=== PATIENT | female | born 1960 | race American Indian/Alaskan Native ===

== ENCOUNTER 2017-06-07 08:24 | Outpatient (CLI) | payer MEDICARE ==
[2017-06-07] MEDS ORDERED: XYLOCAINE TOPICAL 4% TP ONE (09:18)
== END 2017-06-07 08:25 | disposition home or self-care (01) ==
LOC: WOUND 08:24
PROVIDERS: ATTEND Podiatrist
DX: E11.622 Type 2 diabetes mellitus with other skin ulcer (principal); L97.812 Non-pressure chronic ulcer of other part of right lower leg with fat layer exposed; L97.822 Non-pressure chronic ulcer of other part of left lower leg with fat layer exposed; I87.2 Venous insufficiency (chronic) (peripheral); I10 Essential (primary) hypertension; F17.200 Nicotine dependence, unspecified, uncomplicated
CPT/HCPCS: 11042; 82962; 87116; 88304; G0463

== ENCOUNTER 2017-06-07 10:33 | Inpatient (IN) | payer MEDICARE ==
[2017-06-07 11:31] LABS: Basophils # (Auto) 0.1 K/mm3 (0.0-0.1); Basophils % (Auto) 1.1 % (0.0-1.8); Eosinophils # (Auto) 0.5 K/mm3 (0.0-0.4); Eosinophils % (Auto) 9.3 % (0.0-4.3); Hematocrit 47.3 % (30.3-42.9); Lymphocytes # (Auto) 1.9 K/mm3 (1.2-5.4); Lymphocytes % (Auto) 34.4 % (13.4-35.0); Mean Corpuscular HGB Conc 32 % (30-34); Mean Corpuscular Hemoglobin 27 pg (28-32); Mean Corpuscular Volume 84 fl (79-97); Monocytes # (Auto) 0.4 K/mm3 (0.0-0.8); Monocytes % (Auto) 7.4 % (0.0-7.3); Platelet Count 199 K/mm3 (140-440); Red Blood Count 5.61 M/mm3 (3.65-5.03); Red Cell Distribution Width 14.7 % (13.2-15.2)
[2017-06-07 12:18] LABS: BUN/Creatinine Ratio 14; Blood Urea Nitrogen 10 mg/dL (7-17); Calcium 9.6 mg/dL (8.4-10.2); Hemolysis Index 8
[2017-06-07] MEDS ORDERED: HumuLIN R IV ONE (12:58)
[2017-06-07] MEDS ORDERED: NACL 0.9% 1000 ML 1,000 ML IV ONE (12:58)
--- NOTE | 2017-06-07 13:35 | Emergency Department Report ---
HPI - General Chief Complaint: Hyperglycemia Time Seen by Provider: 06/07/17 12:44 - HPI HPI: 56-year-old female presents to the emergency department with complaint of elevated blood pressure, elevated blood sugar and sores to her legs. She was sent in from the wound center where she visited today for her second time ever. She says that these lower extremity wounds have been there over the past 2 years but worsened recently. She has a past medical history of arthritis, diabetes and hypertension. She is on both pills and insulin for her diabetes and says she has been compliant. She denies any fever, chest pain, shortness of breath, nausea, vomiting. Other than her normal home medications, she has not taken anything for her symptoms prior to presentation. No recent travel or sick contacts at home. ED Past Medical Hx - Past Medical History Hx Hypertension: Yes Hx Diabetes: Yes Hx Arthritis: Yes Additional medical history: hyperlipidemia - Surgical History Additional Surgical History: L hand surgery - Social History Smoking Status: Current Every Day Smoker Substance Use Type: Alcohol - Medications Home Medications: Home Medications Medication Instructions Recorded Confirmed Last Taken Type Atorvastatin (Nf) [Lipitor (Nf)] 20 mg PO QDAY 04/24/14 05/08/14 05/08/14 History Carvedilol [Coreg] 25 mg PO BID 04/24/14 05/08/14 05/08/14 History HYDROcodone/APAP 5-325 [Garibaldi 1 each PO Q6HR PRN #12 tablet 04/24/14 05/08/14 Rx 5-325 mg TAB] Insulin Aspart [NovoLOG Flexpen] 10 unit SQ BID 04/24/14 05/08/14 05/08/14 History Insulin Detemir [Levemir Flextouch] 60 units SQ HS 04/24/14 05/08/14 05/08/14 History Lisinopril/Hydrochlorothiazide 1 tab PO QDAY 04/24/14 05/08/14 05/08/14 History [Zestoretic 20-12.5 mg] Mometasone/Formoterol [Dulera 100 1 puff IH BID 04/24/14 05/08/14 05/08/14 History Mcg/5 Mcg Inhaler] cloNIDine [Catapres] 0.2 mg PO QHS #30 tablet 04/24/14 05/08/14 05/08/14 Rx Ibuprofen [Motrin 400 MG tab] 400 mg PO Q8H #20 tablet 05/08/14 Unknown Rx Latanoprost [Xalatan 0.005% eye 1 drop OU QPM 05/08/14 05/08/14 05/08/14 History drops] metFORMIN [Glucophage] 500 mg PO BID #60 tablet 05/08/14 Unknown Rx Acetaminophen/Codeine [Tylenol #3] 1 tab PO Q6H PRN #20 tab 06/03/15 Unknown Rx Clindamycin [Clindamycin CAP] 300 mg PO Q6H #40 capsule 06/03/15 Unknown Rx Ibuprofen [Motrin] 600 mg PO Q8H PRN #40 tablet 06/03/15 Unknown Rx ED Review of Systems ROS: Stated complaint: HYPERTENSIVE/ BILATERAL LEG SORES Other details as noted in HPI Comment: All other systems reviewed and negative Constitutional: denies: chills, fever Eyes: denies: eye pain, eye discharge, vision change ENT: denies: ear pain, throat pain Respiratory: denies: cough, shortness of breath, wheezing Cardiovascular: denies: chest pain, palpitations Gastrointestinal: denies: abdominal pain, nausea, diarrhea Genitourinary: denies: urgency, dysuria, discharge Musculoskeletal: denies: back pain, joint swelling, arthralgia Skin: lesions, change in color Neurological: denies: headache, weakness, paresthesias Physical Exam - Physical Exam Vital Signs: Vital Signs 06/07/17 10:51 Temperature 97.9 F Pulse Rate 79 Respiratory 16 Rate Blood Pressure 132/96 O2 Sat by Pulse 95 Oximetry Physical Exam: GENERAL: The patient is well-developed well-nourished. HENT: Normocephalic. Atraumatic. Patient has moist mucous membranes. EYES: Extraocular motions are intact. Pupils equal reactive to light bilaterally. NECK: Supple. Trachea is midline. CHEST/LUNGS: Clear to auscultation. There is no respiratory distress noted. HEART/CARDIOVASCULAR: Regular. There is no tachycardia. There is no murmur. ABDOMEN: Abdomen is soft, nontender. Patient has normal bowel sounds. Obese habitus. SKIN: There are multiple bilateral lower extremity sores and ulcerations between the knees and ankles over the tib-fib region. The area to the right lower extremity also has surrounding erythema and some warmth concerning for a cellulitis. NEURO: The patient is awake, alert, and oriented. The patient is cooperative. The patient has no focal neurologic deficits. The patient has normal speech. MUSCULOSKELETAL: There is no tenderness or deformity. There is no evidence of acute injury. ED Course Vital Signs 06/07/17 10:51 Temperature 97.9 F Pulse Rate 79 Respiratory 16 Rate Blood Pressure 132/96 O2 Sat by Pulse 95 Oximetry ED Medical Decision Making - Lab Data Result diagrams: 06/07/17 11:00 06/07/17 11:00 - Medical Decision Making The patient presents with hyperglycemia that is uncontrolled diabetes, lower extremity chronic wounds and ulcers that appear to have developed into a cellulitis. She had a complaint of elevated blood pressure but it has been reasonable since she has been in the emergency department. She has a blood sugar of 500 with a mild elevation in her anion gap no venous acidosis. She does not appear to be in diabetic ketoacidosis but certainly has uncontrolled diabetes. She was given IV fluid and IV insulin to start. However with the lower external cellulitis, the complaint that there was some purulent discharge seen in the Wound Care clinic, with the elevated uncontrolled diabetes, the patient will be admitted to the hospital for further evaluation, IV antibiotics and she has been accepted for admission by the hospitalist, Dr Carpenter. - Differential Diagnosis HHNK, DKA, cellulitis, venous stasis Critical Care Time: No Critical care attestation.: If time is entered above; I have spent that time in minutes in the direct care of this critically ill patient, excluding procedure time. ED Disposition Clinical Impression: Hyperglycemia Lower extremity cellulitis Qualifiers: Laterality: right Qualified Code(s): L03.115 - Cellulitis of right lower limb Uncontrolled diabetes mellitus Qualifiers: Diabetes mellitus type: type 1 Diabetes mellitus complication status: with hyperglycemia Qualified Code(s): E10.65 - Type 1 diabetes mellitus with hyperglycemia Disposition: OP ADMIT IP TO THIS HOSP Is pt being admited?: Yes Condition: Stable Referrals: PRIMARY CARE, [Primary Care Provider] - 3-5 Days Time of Disposition: 15:32
--- NOTE | 2017-06-07 14:58 | History and Physical Report ---
History of Present Illness Chief complaint: My leg is infected History of present illness: 56 YO Female with HTN, DM, OA, HLD, Nicotine Dependence, presents to ED for evaluation. Pt states that she has experienced redness and pain in her legs over the past 1 week with worsening redness over the past 2 days. Pt seen and evaluated in the wound care clinic and found to have Bilateral lower extremity cellulitis. Pt sent to ED for evaluation. Pt denies fever, Chills, CP, Palpitations, NVD, Productive cough, recent ill contacts, shortness of breath, nausea, vomiting, diarrhea, prolonged travel/immobility, individual/family history of DVT/PE. Pt admitted to medical floor. Past History Past Medical History: arthritis, diabetes, hypertension Past Surgical History: Other (Left Hand) Social history: smoking Family history: diabetes, hypertension Medications and Allergies Allergies Allergy/AdvReac Type Severity Reaction Status Date / Time Sulfa (Sulfonamide Allergy Hives Verified 04/24/14 02:09 Antibiotics) Home Medications Medication Instructions Recorded Confirmed Last Taken Type Carvedilol [Coreg] 25 mg PO HS 04/24/14 06/07/17 06/06/17 History Insulin Detemir [Levemir Flextouch] 22 units SUB-Q BID 04/24/14 06/07/17 History Aspirin/Acetaminophen/Caffeine 1 each PO QDAY PRN 06/07/17 06/07/17 06/06/17 History [Goodbridgette's Ex-Str Powder Packet] Atorvastatin Calcium [Lipitor] 20 mg PO HS 06/07/17 06/07/17 06/06/17 History Lisinopril/Hydrochlorothiazide 1 tab PO QDAY 06/07/17 06/07/17 06/06/17 History [Zestoretic 20-25 mg] Active Meds: Active Medications Vancomycin HCl (Vancomycin/0.45 Ns 1 Gm/250 Ml) 1 gm in 250 mls @ 167.007 mls/ hr IV ONCE ONE Stop: 06/07/17 16:59 Review of Systems Constitutional: no weight loss, no weight gain, no fever, no chills Ears, nose, mouth and throat: no ear pain, no ear discharge, no tinnitis, no decreased hearing, no nose pain, no nasal congestion, no nasal discharge Breasts: no change in shape, no swelling, no mass Cardiovascular: no chest pain, no orthopnea, no palpitations, no rapid/ irregular heart beat, no edema, no syncope Respiratory: no cough, no cough with sputum, no excessive sputum, no hemoptysis , no shortness of breath Gastrointestinal: no nausea, no vomiting, no diarrhea, no constipation, no change in bowel habits Genitourinary Female: no pelvic pain, no flank pain, no menorrhagia Rectal: no pain, no incontinence, no bleeding Musculoskeletal: other (Leg redness, ), no neck pain, no shooting arm pain, no arm numbness/tingling, no morning stiffness, no muscle weakness, no muscle cramps Integumentary: redness, lesions Neurological: no head injury, no transient paralysis, no paralysis, no weakness , no parathesias, no numbness, no tingling, no seizures Psychiatric: no anxiety, no memory loss, no change in sleep habits, no sleep disturbances, no insomnia, no hypersomnia, no change in appetite Endocrine: no cold intolerance, no heat intolerance, no polyphagia, no excessive thirst, no polydipsia, no polyuria, no nocturia, no excessive sweating , no flushing Hematologic/Lymphatic: no easy bruising, no easy bleeding, no lymphadenopathy, no lymphedema Allergic/Immunologic: no urticaria, no allergic rhinitis, no wheezing, no persistent infections, no anaphylaxis, no angioedema Exam - Constitutional Vitals: Temp Pulse Resp BP Pulse Ox 97.9 F 79 16 132/96 95 06/07/17 10:51 06/07/17 10:51 06/07/17 10:51 06/07/17 10:51 06/07/17 10:51 General appearance: Present: mild distress - EENT Eyes: Present: PERRL ENT: hearing intact, clear oral mucosa - Respiratory Respiratory effort: normal - Cardiovascular Heart Sounds: Present: S1 & S2. Absent: rub, click - Extremities Extremity abnormal: edema, ulceration, erythema Results - Labs CBC & Chem 7: 06/07/17 11:00 06/07/17 11:00 Labs: Abnormal lab results 06/07/17 06/07/17 06/07/17 Range/Units 11:00 11:00 11:01 RBC 5.61 H (3.65-5.03) M/mm3 Hgb 15.0 H (10.1-14.3) gm/dl Hct 47.3 H (30.3-42.9) % MCH 27 L (28-32) pg [place] % (Auto) 7.4 H (0.0-7.3) % Eos % (Auto) 9.3 H (0.0-4.3) % Eos # 0.5 H (0.0-0.4) K/mm3 Glucose 506 H* (65-100) mg/dL POC Glucose 431 H (70-105) Assessment and Plan - Patient Problems (1) Lower extremity cellulitis Current Visit: Yes Status: Acute Qualifiers: Laterality: left Qualified Code(s): L03.116 - Cellulitis of left lower limb Plan to address problem: Left and right lower Extremity Cellulitis: IV antibiotics, wound care, wound culture, pain control. (2) Nicotine dependence Current Visit: Yes Status: Acute Qualifiers: Substance use status: in withdrawal Plan to address problem: Nicotine cessation counseling, supportive care. (3) Uncontrolled diabetes mellitus Current Visit: Yes Status: Acute Qualifiers: Diabetes mellitus type: type 1 Diabetes mellitus complication status: with hyperglycemia Qualified Code(s): E10.65 - Type 1 diabetes mellitus with hyperglycemia Plan to address problem: consistent carbohydrate diet, accu check, insulin (4) DVT prophylaxis Current Visit: Yes Status: Acute
[2017-06-07] MEDS ORDERED: VANCOMYCIN/NS 1 GM/250 ML 1 GM/250 ML BAG IV SCH (15:00)
[2017-06-07] MEDS ORDERED: VANCOMYCIN/0.45 NS 1 GM/250 ML 1 GM/250 ML BAG IV ONE (15:30)
[2017-06-07] MEDS ORDERED: PROVENTIL IH PRN (15:31)
[2017-06-07] MEDS ORDERED: TYLENOL PO PRN (15:31)
[2017-06-07] MEDS ORDERED: SODIUM CHLORIDE FLUSH SYRINGE 10 ML IV PRN (15:31)
[2017-06-07] MEDS ORDERED: ZOFRAN IV PRN (15:31)
[2017-06-07] MEDS ORDERED: D50W (25GM) Syringe IV PRN (15:33)
[2017-06-07 17:36] LABS: Bilirubin,Urine NEG (Negative); Blood,Urine NEG (Negative); Color,Urine Yellow (Yellow); Mucus,Urine FEW /HPF; Protein,Urine <15 mg/dL mg/dL (Negative); Urobilinogen,Urine < 2.0 mg/dL (<2.0)
[2017-06-07] MEDS: SODIUM CHLORIDE FLUSH SYRINGE 10 ML IV SCH (22:16)
[2017-06-07] MEDS: HumaLOG SUB-Q SCH ×2 (22:19→23:12)
[2017-06-08] MEDS: HumaLOG SUB-Q SCH ×3 (06:37→16:30)
[2017-06-08] MEDS: SODIUM CHLORIDE FLUSH SYRINGE 10 ML IV SCH (10:51)
--- NOTE | 2017-06-08 12:32 | Progress Note ---
Assessment and Plan / B/L Lower extremity cellulitis Left and right lower Extremity Cellulitis: IV antibiotics, wound care, wound culture, pain control. follow blood cx / Nicotine dependence Nicotine cessation counseling done, supportive care. / Uncontrolled diabetes mellitus consistent carbohydrate diet, accu check, insulin check a1c /HTN, stable with current meds / DVT prophylaxis lovenox Brief History: 56-year-old female with past medical history of arthritis, diabetes and hypertension presented to the emergency department with complaint of elevated blood sugar and sores to her legs. She was sent in from the wound center where she visited today for her second time ever. She says that these lower extremity wounds have been there over the past 2 years but worsened recently. Physical Exam: GENERAL: The patient is well-developed well-nourished. HENT: Normocephalic. Atraumatic. Patient has moist mucous membranes. EYES: Extraocular motions are intact. Pupils equal reactive to light bilaterally. NECK: Supple. Trachea is midline. CHEST/LUNGS: Clear to auscultation. There is no respiratory distress noted. HEART/CARDIOVASCULAR: Regular. There is no tachycardia. There is no murmur. ABDOMEN: Abdomen is soft, nontender. Patient has normal bowel sounds. Obese habitus. SKIN: There are multiple bilateral lower extremity sores and ulcerations between the knees and ankles over the tib-fib region. The area to the right lower extremity also has surrounding erythema and some warmth NEURO: The patient is awake, alert, and oriented. The patient is cooperative. The patient has no focal neurologic deficits. The patient has normal speech. MUSCULOSKELETAL: There is no tenderness or deformity. There is no evidence of acute injury. Subjective Date of service: 06/08/17 Interval history: Pt seen and examined states her soreness to LE improved BG remained elevated Objective - Constitutional Vitals: Vital Signs - 12hr 06/08/17 06/08/17 06/08/17 00:56 04:45 07:54 Temperature 98.4 F 98.3 F Pulse Rate 70 75 Respiratory 19 20 Rate Blood Pressure 119/81 133/96 O2 Sat by Pulse 95 96 94 Oximetry 06/08/17 11:49 Temperature 98.7 F Pulse Rate 73 Respiratory 20 Rate Blood Pressure 128/98 O2 Sat by Pulse 94 Oximetry - Labs CBC & Chem 7: 06/07/17 11:00 06/07/17 11:00 Labs: Abnormal lab results 06/07/17 06/07/17 06/08/17 Range/Units 11:01 21:19 06:21 POC Glucose 431 H 373 H 278 H (70-105) 06/08/17 Range/Units 11:43 POC Glucose 279 H (70-105)
[2017-06-08] MEDS ORDERED: VANCOMYCIN PHARMACY TO DOSE IV SCH (14:00)
[2017-06-08] MEDS: VANCOMYCIN/NS 1 GM/250 ML 1 GM/250 ML BAG IV SCH (15:00)
[2017-06-08] MEDS: DIFLUCAN PO SCH (17:30)
[2017-06-09] MEDS: VANCOMYCIN/NS 1 GM/250 ML 1 GM/250 ML BAG IV SCH ×2 (00:53→09:30)
[2017-06-09] MEDS: SODIUM CHLORIDE FLUSH SYRINGE 10 ML IV SCH ×3 (00:55→22:05)
[2017-06-09] MEDS: HumaLOG SUB-Q SCH ×5 (00:57→22:27)
[2017-06-09] MEDS: MONISTAT VG SCH ×2 (01:00→23:01)
[2017-06-09] MEDS: DIFLUCAN PO SCH (09:37)
[2017-06-09] MEDS ORDERED: NON-FORMULARY (Insulin Detemir [Levemir Flextouch] 20 UNITS) SUB-Q SCH (10:00)
--- NOTE | 2017-06-09 13:09 | Progress Note ---
Assessment and Plan / B/L Lower extremity cellulitis Left and right lower Extremity Cellulitis: wound care, pain control. negative blood cx, change abx to levaquin po / Nicotine dependence Nicotine cessation counseling done, supportive care. / Uncontrolled diabetes mellitus consistent carbohydrate diet, accu check, insulin a1c >20 add premeal insulin, along with long acting /HTN, change home meds dosage - will place on coreg 6.25 BID and lisinopril 10mg daily / DVT prophylaxis lovenox Brief History: 56-year-old female with past medical history of arthritis, diabetes and hypertension presented to the emergency department with complaint of elevated blood sugar and sores to her legs. She was sent in from the wound center where she visited today for her second time ever. She says that these lower extremity wounds have been there over the past 2 years but worsened recently. Physical Exam: GENERAL: The patient is well-developed well-nourished. HENT: Normocephalic. Atraumatic. Patient has moist mucous membranes. EYES: Extraocular motions are intact. Pupils equal reactive to light bilaterally. NECK: Supple. Trachea is midline. CHEST/LUNGS: Clear to auscultation. There is no respiratory distress noted. HEART/CARDIOVASCULAR: Regular. There is no tachycardia. There is no murmur. ABDOMEN: Abdomen is soft, nontender. Patient has normal bowel sounds. Obese habitus. SKIN: There are multiple bilateral lower extremity sores and ulcerations between the knees and ankles over the tib-fib region. The area to the right lower extremity also has surrounding erythema and some warmth NEURO: The patient is awake, alert, and oriented. The patient is cooperative. The patient has no focal neurologic deficits. The patient has normal speech. MUSCULOSKELETAL: There is no tenderness or deformity. There is no evidence of acute injury. Subjective Date of service: 06/09/17 Interval history: Pt seen and examined states her soreness to LE improved BG remained elevated Objective - Constitutional Vitals: Vital Signs - 12hr 06/09/17 06/09/17 04:25 07:21 Temperature 98.1 F 98.6 F Pulse Rate 66 71 Respiratory 18 20 Rate Blood Pressure 131/84 142/98 O2 Sat by Pulse 94 97 Oximetry - Labs CBC & Chem 7: 06/07/17 11:00 06/10/17 06:22 Labs: Abnormal lab results 06/08/17 06/08/17 06/09/17 Range/Units 16:09 22:03 06:10 POC Glucose 319 H 284 H 220 H (70-105) Hemoglobin A1c (4-6) % 06/09/17 06/09/17 Range/Units 10:26 11:08 POC Glucose 270 H (70-105) Hemoglobin A1c > 20.1 H (4-6) %
[2017-06-09] MEDS: CLEOCIN 600 MG/50 mL 600 MG/50 ML BAG IV SCH ×2 (14:18→21:20)
[2017-06-09] MEDS: COREG PO SCH ×2 (15:28→21:20)
[2017-06-09] MEDS ORDERED: ZESTRIL PO SCH (16:00)
[2017-06-09] MEDS: HumuLIN R SUB-Q SCH (17:23)
[2017-06-09] MEDS ORDERED: VANCOMYCIN 1,250 MG in NACL 0.9% 250ML 250 ML IV SCH (20:00)
[2017-06-09] MEDS ORDERED: VANCOMYCIN 1,500 MG in NACL 0.9% 500 ML 500 ML IV SCH (20:00)
[2017-06-09] MEDS ORDERED: LANTUS SUB-Q SCH (22:00)
[2017-06-10] MEDS: CLEOCIN 600 MG/50 mL 600 MG/50 ML BAG IV SCH ×3 (05:27→22:09)
[2017-06-10 07:09] LABS: BUN/Creatinine Ratio 18; Blood Urea Nitrogen 9 mg/dL (7-17); Calcium 8.4 mg/dL (8.4-10.2); Hemolysis Index 9
[2017-06-10] MEDS: HumuLIN R SUB-Q SCH ×3 (07:30→17:10)
[2017-06-10] MEDS: HumaLOG SUB-Q SCH ×4 (07:30→22:10)
[2017-06-10] MEDS ORDERED: LANTUS SUB-Q SCH (08:05)
[2017-06-10] MEDS: ZESTRIL PO SCH (10:05)
[2017-06-10] MEDS: COREG PO SCH ×2 (10:05→22:09)
[2017-06-10] MEDS: DIFLUCAN PO SCH (10:05)
[2017-06-10] MEDS: SODIUM CHLORIDE FLUSH SYRINGE 10 ML IV SCH ×2 (10:13→22:08)
[2017-06-10] MEDS: NORVASC PO SCH (13:10)
--- NOTE | 2017-06-10 14:23 | Progress Note ---
Assessment and Plan / B/L Lower extremity cellulitis Left and right lower Extremity Cellulitis: wound care, pain control. negative blood cx, change abx to clindamycin iv / Nicotine dependence Nicotine cessation counseling done, supportive care. / Uncontrolled diabetes mellitus consistent carbohydrate diet, accu check, insulin a1c >20 increase premeal insulin to 10 unit and long acting insulin to 28 unit BID /HTN, change home meds dosage - cont on coreg 6.25 BID and lisinopril 10mg daily - will also add norvasc 10mg daily /Vaginal candidiasis - cont miconazole PV and diflucan po / DVT prophylaxis lovenox Disposition: Likely tomorrow if BG improved and BP stable Brief History: 56-year-old female with past medical history of arthritis, diabetes and hypertension presented to the emergency department with complaint of elevated blood sugar and sores to her legs. She was sent in from the wound center where she visited today for her second time ever. She says that these lower extremity wounds have been there over the past 2 years but worsened recently. Physical Exam: GENERAL: The patient is well-developed well-nourished. HENT: Normocephalic. Atraumatic. Patient has moist mucous membranes. EYES: Extraocular motions are intact. Pupils equal reactive to light bilaterally. NECK: Supple. Trachea is midline. CHEST/LUNGS: Clear to auscultation. There is no respiratory distress noted. HEART/CARDIOVASCULAR: Regular. There is no tachycardia. There is no murmur. ABDOMEN: Abdomen is soft, nontender. Patient has normal bowel sounds. Obese habitus. SKIN: There are multiple bilateral lower extremity sores and ulcerations between the knees and ankles over the tib-fib region. The area to the right lower extremity also has surrounding erythema and some warmth NEURO: The patient is awake, alert, and oriented. The patient is cooperative. The patient has no focal neurologic deficits. The patient has normal speech. MUSCULOSKELETAL: There is no tenderness or deformity. There is no evidence of acute injury. Subjective Date of service: 06/10/17 Interval history: Pt seen and examined states her soreness to LE improved BG remained elevated Objective - Constitutional Vitals: Vital Signs - 12hr 06/10/17 06/10/17 06/10/17 05:10 07:46 10:00 Temperature 98.0 F 98.1 F Pulse Rate 61 63 Respiratory 20 18 Rate Blood Pressure 143/99 136/97 O2 Sat by Pulse 94 97 98 Oximetry 06/10/17 11:59 Temperature 98.0 F Pulse Rate Respiratory 18 Rate Blood Pressure 137/105 O2 Sat by Pulse Oximetry - Labs CBC & Chem 7: 06/07/17 11:00 06/10/17 06:22 Labs: Abnormal lab results 06/09/17 06/09/17 06/10/17 Range/Units 16:09 22:24 06:19 Creatinine (0.7-1.2) mg/dL Glucose (65-100) mg/dL POC Glucose 225 H 245 H 196 H (70-105) 06/10/17 06/10/17 Range/Units 06:22 11:28 Creatinine 0.5 L (0.7-1.2) mg/dL Glucose 189 H (65-100) mg/dL POC Glucose 269 H (70-105)
[2017-06-10] MEDS: LANTUS SUB-Q SCH (22:10)
[2017-06-10] MEDS: MONISTAT VG SCH (22:10)
[2017-06-11] MEDS: CLEOCIN 600 MG/50 mL 600 MG/50 ML BAG IV SCH ×3 (06:20→22:09)
[2017-06-11 07:06] LABS: Chol/HDL Ratio 5.07 %
[2017-06-11] MEDS: HumuLIN R SUB-Q SCH ×3 (07:30→16:30)
[2017-06-11] MEDS: HumaLOG SUB-Q SCH ×4 (08:33→22:10)
[2017-06-11] MEDS: DIFLUCAN PO SCH (09:38)
[2017-06-11] MEDS: ZESTRIL PO SCH (09:38)
[2017-06-11] MEDS: NORVASC PO SCH (09:39)
[2017-06-11] MEDS: COREG PO SCH ×2 (09:39→22:08)
[2017-06-11] MEDS: LANTUS SUB-Q SCH ×2 (09:39→22:10)
[2017-06-11] MEDS: SODIUM CHLORIDE FLUSH SYRINGE 10 ML IV SCH ×2 (09:41→22:11)
--- NOTE | 2017-06-11 18:51 | Progress Note ---
Assessment and Plan Assessment and plan: --Bilateral lower extremity cellulitis; Continue current antibiotics, elevate the limbs Follow cultures, wound care, wound care surgery evaluation Inpatient versus outpatient --Uncontrolled diabetes mellitus; HbA1c more than 20, Accu-Chek sliding scale coverage and ADA diet Long-acting insulin, diabetic education and nutrition consult Home health nurse for diabetic education and monitoring upon discharge --Hypertension; moderate control Continue current antihypertensives and when necessary medications --Vaginal candidiasis; continue local miconazole, oral Diflucan --DVT prophylaxis; Lovenox --Ongoing tobacco use; counseling done advised nicotine patch as needed --DC planning; case management, home health, home health nurse For disease monitoring Possible discharge tomorrow if stable Plan of care reviewed with the patient and her nurse as well as a case management History Interval history: Patient seen and examined medical records reviewed Admitted with bilateral lower extremity cellulitis, on antibiotics and wound care Patient has uncontrolled blood sugars, insulin doses adjusted Sugars are reasonably controlled Alert awake oriented 3 not in acute distress Vital signs reviewed Hospitalist Physical - Constitutional Vitals: Temp Pulse Resp BP Pulse Ox 98.4 F 60 18 122/86 98 06/11/17 16:19 06/11/17 07:18 06/11/17 16:19 06/11/17 16:19 06/11/17 10:00 General appearance: Present: no acute distress, well-nourished, obese - EENT Eyes: Present: PERRL, EOM intact - Neck Neck: Present: supple, normal ROM - Respiratory Respiratory effort: normal Respiratory: negative: rales, rhonchi, wheezing - Cardiovascular Rhythm: regular Heart Sounds: Present: S1 & S2 - Extremities Extremities: abnormal (bilateral lower extremity cellulitis, and dressing) Extremity abnormal: edema - Abdominal General gastrointestinal: soft, non-tender, non-distended, normal bowel sounds - Integumentary Integumentary: Present: clear, warm - Psychiatric Psychiatric: appropriate mood/affect, cooperative - Neurologic Neurologic: CNII-XII intact, moves all extremities Results - Labs CBC & Chem 7: 06/07/17 11:00 06/10/17 06:22 Labs: Laboratory Last Values WBC 5.6 K/mm3 (4.5-11.0) 06/07/17 11:00 RBC 5.61 M/mm3 (3.65-5.03) H 06/07/17 11:00 Hgb 15.0 gm/dl (10.1-14.3) H 06/07/17 11:00 Hct 47.3 % (30.3-42.9) H 06/07/17 11:00 MCV 84 fl (79-97) 06/07/17 11:00 MCH 27 pg (28-32) L 06/07/17 11:00 MCHC 32 % (30-34) 06/07/17 11:00 RDW 14.7 % (13.2-15.2) 06/07/17 11:00 Plt Count 199 K/mm3 (140-440) 06/07/17 11:00 Lymph % (Auto) 34.4 % (13.4-35.0) 06/07/17 11:00 [place] % (Auto) 7.4 % (0.0-7.3) H 06/07/17 11:00 Eos % (Auto) 9.3 % (0.0-4.3) H 06/07/17 11:00 Baso % (Auto) 1.1 % (0.0-1.8) 06/07/17 11:00 Lymph # 1.9 K/mm3 (1.2-5.4) 06/07/17 11:00 Murray # 0.4 K/mm3 (0.0-0.8) 06/07/17 11:00 Eos # 0.5 K/mm3 (0.0-0.4) H 06/07/17 11:00 Baso # 0.1 K/mm3 (0.0-0.1) 06/07/17 11:00 Seg Neutrophils % 47.8 % (40.0-70.0) 06/07/17 11:00 Seg Neutrophils # 2.7 K/mm3 (1.8-7.7) 06/07/17 11:00 VBG pH 7.356 (7.320-7.420) 06/07/17 11:00 Sodium 141 mmol/L (137-145) 06/10/17 06:22 Potassium 3.9 mmol/L (3.6-5.0) 06/10/17 06:22 Chloride 105.5 mmol/L (98-107) 06/10/17 06:22 Carbon Dioxide 25 mmol/L (22-30) 06/10/17 06:22 Anion Gap 14 mmol/L 06/10/17 06:22 BUN 9 mg/dL (7-17) 06/10/17 06:22 Creatinine 0.5 mg/dL (0.7-1.2) L 06/10/17 06:22 Estimated GFR > 60 ml/min 06/10/17 06:22 BUN/Creatinine Ratio 18 % 06/10/17 06:22 Glucose 189 mg/dL (65-100) H 06/10/17 06:22 POC Glucose 155 (70-105) H 06/11/17 16:32 Hemoglobin A1c > 20.1 % (4-6) H 06/09/17 10:26 Lactic Acid 1.60 mmol/L (0.7-2.0) 06/07/17 14:34 Calcium 8.4 mg/dL (8.4-10.2) 06/10/17 06:22 Triglycerides 175 mg/dL (2-149) H 06/11/17 05:12 Cholesterol 142 mg/dL (50-199) 06/11/17 05:12 LDL Cholesterol Direct 94 mg/dL (50-130) 06/11/17 05:12 HDL Cholesterol 28 mg/dL (40-59) L 06/11/17 05:12 Cholesterol/HDL Ratio 5.07 % 06/11/17 05:12 TSH 0.826 mlU/mL (0.270-4.200) 06/11/17 05:12 Free T4 1.00 ng/dL (0.76-1.46) 06/11/17 05:12 Urine Color Yellow (Yellow) 06/07/17 16:07 Urine Turbidity Clear (Clear) 06/07/17 16:07 Urine pH 6.0 (5.0-7.0) 06/07/17 16:07 Urine Protein <15 mg/dl mg/dL (Negative) 06/07/17 16:07 Urine Glucose (UA) >=500 mg/dL (Negative) 06/07/17 16:07 Urine Ketones Tr mg/dL (Negative) 06/07/17 16:07 Urine Blood Neg (Negative) 06/07/17 16:07 Urine Nitrite Neg (Negative) 06/07/17 16:07 Urine Bilirubin Neg (Negative) 06/07/17 16:07 Urine Urobilinogen < 2.0 mg/dL (<2.0) 06/07/17 16:07 Ur Leukocyte Esterase Sm (Negative) 06/07/17 16:07 Urine WBC (Auto) 1.0 /HPF (0.0-6.0) 06/07/17 16:07 Urine RBC (Auto) 1.0 /HPF (0.0-6.0) 06/07/17 16:07 U Epithel Cells (Auto) 1.0 /HPF (0-13.0) 06/07/17 16:07 Urine Mucus Few /HPF 06/07/17 16:07
[2017-06-11] MEDS: MONISTAT VG SCH (22:09)
[2017-06-12] MEDS: CLEOCIN 600 MG/50 mL 600 MG/50 ML BAG IV SCH ×2 (05:24→15:00)
[2017-06-12] MEDS: LANTUS SUB-Q SCH (09:12)
[2017-06-12] MEDS: HumaLOG SUB-Q SCH ×3 (09:22→17:34)
[2017-06-12] MEDS: HumuLIN R SUB-Q SCH ×3 (09:23→17:35)
[2017-06-12] MEDS: DIFLUCAN PO SCH (10:23)
[2017-06-12] MEDS: NORVASC PO SCH (10:23)
[2017-06-12] MEDS: COREG PO SCH (10:23)
[2017-06-12] MEDS: ZESTRIL PO SCH (10:23)
[2017-06-12] MEDS: SODIUM CHLORIDE FLUSH SYRINGE 10 ML IV SCH (10:24)
--- NOTE | 2017-06-12 15:33 | Discharge Summary ---
Providers - Providers Date of Admission: 06/07/17 15:32 Date of discharge: 06/12/17 Attending physician: GALILEA SLAUGHTER 06/08/17 17:58 Consult to Wound/ET Nurse [CONS] Routine Reason For Exam: wound eval Primary care physician: [facility] Hospitalization Condition: Stable Disposition: DC/[place]-06 HOME [facility] Time spent for discharge: 31min Core Measure Documentation - Palliative Care Palliative Care/ Comfort Measures: Not Applicable - Core Measures Any of the following diagnoses?: none Exam - Constitutional Vitals: Temp Pulse Resp BP Pulse Ox 98.5 F 62 18 119/82 96 06/12/17 12:30 06/12/17 12:30 06/12/17 12:30 06/12/17 12:30 06/12/17 12:30 General appearance: Present: no acute distress, well-nourished - EENT Eyes: Present: PERRL, EOM intact - Neck Neck: Present: supple, normal ROM - Respiratory Respiratory effort: normal Respiratory: negative: rales, rhonchi, wheezing - Cardiovascular Rhythm: regular Heart Sounds: Present: S1 & S2 - Extremities Extremities: no ischemia, abnormal (chronic excoriation/and superficial cellulitis) Extremity abnormal: edema (trace edema) - Abdominal General gastrointestinal: Present: soft, non-tender, non-distended, normal bowel sounds - Integumentary Integumentary: Present: clear, warm - Musculoskeletal Musculoskeletal: strength equal bilaterally - Psychiatric Psychiatric: appropriate mood/affect, cooperative - Neurologic Neurologic: CNII-XII intact, moves all extremities Plan Activity: advance as tolerated Diet: diabetic Wound: per wound nurse instructions Additional Instructions: Wound Care per instructions Follow up with: PRIMARY CARE, [Primary Care Provider] - 3-5 Days Prescriptions: Fluconazole [Diflucan TAB] 200 mg PO QDAY #10 tablet Insulin Regular, Human [HumuLIN R] 10 units SUB-Q AC 30 Days units Miconazole [Monistat Vag Suppos] 100 mg VG QHS #7 supp.vag
[2017-06-12 18:19] VITALS: BP 129/88
== END 2017-06-12 19:01 | disposition home health service (06) | DRG 758 ==
LOC: ED 10:33 → 3A 15:32
PROVIDERS: ADMIT Internal Medicine; ATTEND Internal Medicine
DX: B37.3 Candidiasis of vulva and vagina (principal); L03.116 Cellulitis of left lower limb; L03.115 Cellulitis of right lower limb; I10 Essential (primary) hypertension; E78.5 Hyperlipidemia, unspecified; M19.90 Unspecified osteoarthritis, unspecified site; F17.210 Nicotine dependence, cigarettes, uncomplicated; E11.65 Type 2 diabetes mellitus with hyperglycemia; Z83.3 Family history of diabetes mellitus; Z82.49 Family history of ischemic heart disease and other diseases of the circulatory system; Z88.2 Allergy status to sulfonamides; Z79.4 Long term (current) use of insulin; Z79.899 Other long term (current) drug therapy; Z71.6 Tobacco abuse counseling
CPT/HCPCS: 36415; 80048; 80061; 81001; 82140; 82805; 82962; 83036; 84439; 84443; 85025; 87040; 96374; 96375; A9270-GY; J1815; J3370; J7030; J7040; J7050

== ENCOUNTER 2017-06-14 09:12 | Outpatient (CLI) | payer MEDICARE ==
[2017-06-14] MEDS ORDERED: XYLOCAINE TOPICAL 4% TP ONE ×2 (09:57→10:01)
== END 2017-06-14 09:13 | disposition home or self-care (01) ==
LOC: WOUND 09:12
PROVIDERS: ATTEND Podiatrist
DX: E11.622 Type 2 diabetes mellitus with other skin ulcer (principal); L97.812 Non-pressure chronic ulcer of other part of right lower leg with fat layer exposed; L97.822 Non-pressure chronic ulcer of other part of left lower leg with fat layer exposed; I87.2 Venous insufficiency (chronic) (peripheral); I10 Essential (primary) hypertension; F17.200 Nicotine dependence, unspecified, uncomplicated
CPT/HCPCS: 29580; 97597

== ENCOUNTER 2017-06-21 09:21 | Outpatient (CLI) | payer MEDICARE ==
[2017-06-21] MEDS ORDERED: XYLOCAINE TOPICAL 4% TP ONE ×2 (10:11→10:18)
[2017-06-21] MEDS ORDERED: AD OINTMENT TP ONE (10:54)
[2017-06-22] MEDS ORDERED: AD OINTMENT TP SCH (10:00)
== END 2017-06-21 09:22 | disposition home or self-care (01) ==
LOC: WOUND 09:21
PROVIDERS: ATTEND Podiatrist
DX: E11.622 Type 2 diabetes mellitus with other skin ulcer (principal); L97.812 Non-pressure chronic ulcer of other part of right lower leg with fat layer exposed; L97.822 Non-pressure chronic ulcer of other part of left lower leg with fat layer exposed; I87.2 Venous insufficiency (chronic) (peripheral); I10 Essential (primary) hypertension; F17.200 Nicotine dependence, unspecified, uncomplicated
CPT/HCPCS: 29580; A6250

== ENCOUNTER 2017-06-28 09:05 | Outpatient (CLI) | payer MEDICARE ==
[2017-06-28] MEDS ORDERED: XYLOCAINE TOPICAL 4% TP ONE ×2 (09:29→09:37)
== END 2017-06-28 09:06 | disposition home or self-care (01) ==
LOC: WOUND 09:05
PROVIDERS: ATTEND Podiatrist
DX: E11.622 Type 2 diabetes mellitus with other skin ulcer (principal); L97.812 Non-pressure chronic ulcer of other part of right lower leg with fat layer exposed; L97.822 Non-pressure chronic ulcer of other part of left lower leg with fat layer exposed; I87.2 Venous insufficiency (chronic) (peripheral); I10 Essential (primary) hypertension; F17.200 Nicotine dependence, unspecified, uncomplicated
CPT/HCPCS: 29580

== ENCOUNTER 2017-07-05 09:18 | Outpatient (CLI) | payer MEDICARE ==
[2017-07-05] MEDS ORDERED: XYLOCAINE TOPICAL 4% TP ONE ×2 (09:56→10:09)
== END 2017-07-05 09:19 | disposition home or self-care (01) ==
LOC: WOUND 09:18
PROVIDERS: ATTEND Podiatrist
DX: E11.622 Type 2 diabetes mellitus with other skin ulcer (principal); L97.812 Non-pressure chronic ulcer of other part of right lower leg with fat layer exposed; L97.822 Non-pressure chronic ulcer of other part of left lower leg with fat layer exposed; I87.2 Venous insufficiency (chronic) (peripheral); I10 Essential (primary) hypertension; F17.200 Nicotine dependence, unspecified, uncomplicated
CPT/HCPCS: 29580

== ENCOUNTER 2017-07-15 09:04 | Outpatient (CLI) | payer MEDICARE ==
[2017-07-15] MEDS ORDERED: XYLOCAINE TOPICAL 2% 5ML ONE (09:45)
[2017-07-15 11:33] LABS: Amphetamine Screen,Urine PRESUMPTIVE NEGATIVE; Benzodiazepines Screen,Urine PRESUMPTIVE NEGATIVE; Cannabinoid Screen,Urine PRESUMPTIVE NEGATIVE; Cocaine Screen,Urine PRESUMPTIVE NEGATIVE; Methadone Screen,Urine PRESUMPTIVE NEGATIVE; Opiate Screen,Urine PRESUMPTIVE NEGATIVE
[2017-07-15] MEDS ORDERED: XYLOCAINE TOPICAL 2% 5ML TP ONE (12:16)
[2017-07-17 12:37] LABS: ANA Screen, IFA Negative (Negative)
[2017-07-17 17:56] LABS: Myeloperoxidase Antibody <1.0 AI (<1.0)
== END 2017-07-15 09:05 | disposition home or self-care (01) ==
LOC: WOUND 09:04
PROVIDERS: ATTEND Internal Medicine
DX: E11.622 Type 2 diabetes mellitus with other skin ulcer (principal); L97.812 Non-pressure chronic ulcer of other part of right lower leg with fat layer exposed; L97.822 Non-pressure chronic ulcer of other part of left lower leg with fat layer exposed; I87.2 Venous insufficiency (chronic) (peripheral); I10 Essential (primary) hypertension; F17.200 Nicotine dependence, unspecified, uncomplicated; Z79.899 Other long term (current) drug therapy
CPT/HCPCS: 29581; 36415; 80307; 85220; 85652; 86021; 86038; 86140; 86618

== ENCOUNTER 2017-07-22 09:07 | Outpatient (CLI) | payer MEDICARE ==
[2017-07-22] MEDS ORDERED: XYLOCAINE TOPICAL 4% TP ONE ×2 (10:01→10:03)
== END 2017-07-22 09:08 | disposition home or self-care (01) ==
LOC: WOUND 09:07
PROVIDERS: ATTEND Surgery
DX: E11.622 Type 2 diabetes mellitus with other skin ulcer (principal); L97.812 Non-pressure chronic ulcer of other part of right lower leg with fat layer exposed; L97.822 Non-pressure chronic ulcer of other part of left lower leg with fat layer exposed; I10 Essential (primary) hypertension; F17.200 Nicotine dependence, unspecified, uncomplicated
CPT/HCPCS: 29580; G0463

== ENCOUNTER 2017-07-30 10:17 | Outpatient (CLI) | payer MEDICARE ==
[2017-07-30] MEDS ORDERED: XYLOCAINE TOPICAL 2% 5ML ONE (11:16)
[2017-07-30] MEDS ORDERED: XYLOCAINE TOPICAL 2% 5ML TP ONE (11:16)
== END 2017-07-30 10:18 | disposition home or self-care (01) ==
LOC: WOUND 10:17
PROVIDERS: ATTEND Surgery
DX: E11.622 Type 2 diabetes mellitus with other skin ulcer (principal); L97.812 Non-pressure chronic ulcer of other part of right lower leg with fat layer exposed; I87.2 Venous insufficiency (chronic) (peripheral); I10 Essential (primary) hypertension; F17.200 Nicotine dependence, unspecified, uncomplicated
CPT/HCPCS: 29580

== ENCOUNTER 2017-08-05 10:11 | Outpatient (CLI) | payer MEDICARE | END 2017-08-05 10:12 | disposition home or self-care (01) | LOC: WOUND 10:11 | PROVIDERS: ATTEND Surgery | DX: E11.622 Type 2 diabetes mellitus with other skin ulcer (principal); L97.812 Non-pressure chronic ulcer of other part of right lower leg with fat layer exposed; L97.822 Non-pressure chronic ulcer of other part of left lower leg with fat layer exposed; I10 Essential (primary) hypertension; F17.200 Nicotine dependence, unspecified, uncomplicated | CPT/HCPCS: 99214; G0463 ==

== ENCOUNTER 2017-08-15 11:42 | Outpatient (CLI) | payer MEDICARE | END 2017-08-15 11:43 | disposition home or self-care (01) | LOC: WOUND 11:42 | PROVIDERS: ATTEND Surgery | DX: E11.622 Type 2 diabetes mellitus with other skin ulcer (principal); L97.812 Non-pressure chronic ulcer of other part of right lower leg with fat layer exposed; L97.822 Non-pressure chronic ulcer of other part of left lower leg with fat layer exposed; I10 Essential (primary) hypertension; F17.200 Nicotine dependence, unspecified, uncomplicated | CPT/HCPCS: 99213; G0463 ==

== ENCOUNTER 2019-03-16 10:12 | Outpatient (CLI) | payer MEDICARE ==
[2019-03-16] MEDS ORDERED: LIDOCAINE (4%) 40 MG/ML TOPICAL SOLN 50 ML BOTTLE TP ONE (11:30)
== END 2019-03-16 10:13 | disposition home or self-care (01) ==
LOC: WOUND 10:12
PROVIDERS: ATTEND Surgery
DX: E11.622 Type 2 diabetes mellitus with other skin ulcer (principal); L97.812 Non-pressure chronic ulcer of other part of right lower leg with fat layer exposed; L97.822 Non-pressure chronic ulcer of other part of left lower leg with fat layer exposed; I10 Essential (primary) hypertension; F17.200 Nicotine dependence, unspecified, uncomplicated
CPT/HCPCS: 11042; 11045; G0463; 99204; 99214

== ENCOUNTER 2019-04-06 10:01 | Outpatient (CLI) | payer MEDICARE ==
[2019-04-06] MEDS ORDERED: LIDOCAINE (4%) 40 MG/ML TOPICAL SOLN 50 ML BOTTLE TP ONE (10:30)
== END 2019-04-06 10:02 | disposition home or self-care (01) ==
LOC: WOUND 10:01
PROVIDERS: ATTEND Surgery
DX: E11.622 Type 2 diabetes mellitus with other skin ulcer (principal); L97.812 Non-pressure chronic ulcer of other part of right lower leg with fat layer exposed; L97.822 Non-pressure chronic ulcer of other part of left lower leg with fat layer exposed; I10 Essential (primary) hypertension; F17.200 Nicotine dependence, unspecified, uncomplicated